=== PATIENT | male | born 1985 | race Caucasian/White ===

== ENCOUNTER 2018-07-22 20:21 | Emergency (ER) | payer MEDICAID ==
[~2018-07-22] VITALS: Ht 175.3 cm; Wt 127.0 kg
[2018-07-22 20:34] VITALS: BP 146/92
--- NOTE | 2018-07-22 20:35 | NUR ---
PT AMBULATORY TO ER LOBBY W/ STEADY GAIT IN STABLE CONDITION.
--- NOTE | 2018-07-22 21:08 | NUR ---
PT TAKEN TO CHAIR B
--- NOTE | 2018-07-22 21:23 | NUR ---
ALANNA LORENZO WITH PATIENT
[2018-07-22 21:40] VITALS: BP 133/74
--- NOTE | 2018-07-22 21:40 | NUR ---
Patient discharged with v/s stable. Written and verbal after care instructions given and explained. Patient alert, oriented and verbalized understanding of instructions. Ambulatory with steady gait. All questions addressed prior to discharge. ID band removed. Patient advised to follow up with PMD. Rx of Motrin and Hayward given. Patient educated on indication of medication including possible reaction and side effects. Opportunity to ask questions provided and answered.
== END 2018-07-22 21:40 | disposition home or self-care (01) ==
LOC: MED 20:21
DX: K02.9 Dental caries, unspecified (principal); K05.10 Chronic gingivitis, plaque induced
CPT/HCPCS: 99283

== ENCOUNTER 2018-10-01 11:32 | Emergency (ER) | payer MEDICAID ==
[~2018-10-01] VITALS: Ht 175.3 cm; Wt 124.7 kg
[2018-10-01 12:00] VITALS: BP 121/72
--- NOTE | 2018-10-01 12:00 | NUR ---
PATIENT AMBULATED TO ER BED 11.
[2018-10-01 12:05] VITALS: BP 121/72
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
[2018-10-01] MEDS ORDERED: LIDOCAINE 1% 500 MG/50 ML VIAL INJ SCH (12:35)
[2018-10-01] MEDS ORDERED: LIDOCAINE MPF 1% 5mL VIAL ONE (13:01)
--- NOTE | 2018-10-01 13:04 | NUR ---
DR. SILVER AT PT BEDSIDE
[2018-10-01] MEDS ORDERED: BACITRACIN OINT 500 UNITS/GM PKT TP ONE ×2 (13:45→13:54)
--- NOTE | 2018-10-01 14:00 | NUR ---
PT LEFT FACILITY WITHOUT DISCHARGE PAPERWORK
== END 2018-10-01 14:00 | disposition home or self-care (01) ==
LOC: MED 11:32
DX: S61.411A Laceration without foreign body of right hand, initial encounter (principal); W26.0XXA Contact with knife, initial encounter; Y93.89 Activity, other specified; Y92.89 Other specified places as the place of occurrence of the external cause; Y99.8 Other external cause status
CPT/HCPCS: 12002; 99283; J2001

== ENCOUNTER 2022-10-20 11:21 | Emergency (ER) | payer MEDICAID ==
[~2022-10-20] VITALS: Ht 175.3 cm; Wt 131.5 kg
[2022-10-20 11:51] VITALS: BP 142/86
[2022-10-20] MEDS ORDERED: KETOROLAC 30 MG/ML VIAL IM ONE (13:05)
[2022-10-20] MEDS ORDERED: CYCL-711 PO (13:30)
[2022-10-20] MEDS ORDERED: LID5T TP (13:30)
[2022-10-20] MEDS ORDERED: IBUP-2213 PO (13:30)
[2022-10-20] MEDS ORDERED: KETOROLAC 30 MG/ML VIAL ONE (14:12)
[2022-10-20 14:22] VITALS: BP 142/86
--- NOTE | 2022-10-20 14:22 | NUR ---
Patient discharged with v/s stable. Written and verbal after care instructions given and explained. Patient alert, oriented and verbalized understanding of instructions. Ambulatory with steady gait. All questions addressed prior to discharge. ID band removed. Patient advised to follow up with PMD. Rx of FLEXERIL, IBUPROFEN. LIDODERM given. Patient educated on indication of medication including possible reaction and side effects. Opportunity to ask questions provided and answered.
--- NOTE | 2022-10-20 14:22 | NUR ---
ASSUMED CARE FOR DC INSTRUCTIONS.
== END 2022-10-20 14:22 | disposition home or self-care (01) ==
LOC: MED 11:21
DX: S39.012A Strain of muscle, fascia and tendon of lower back, initial encounter (principal); X58.XXXA Exposure to other specified factors, initial encounter; Y92.89 Other specified places as the place of occurrence of the external cause; Y93.89 Activity, other specified; Y99.8 Other external cause status
CPT/HCPCS: 96372; 99283; J1885